=== PATIENT | male | born 1955 | race Caucasian/White ===

== ENCOUNTER 2025-08-24 09:45 | Outpatient (OUT) | payer MEDICARE, OTHER, SELFPAY ==
--- NOTE | 2025-08-24 09:54 | CA_ITS ---
Patient Name: SHILPA DOMINGUEZ MR#: [id number] : 1955 Exam Date: 08/24/2025 Ordering Doctor: PARUL BALTAZAR CNP ECHOCARDIOGRAM REPORT PROCEDURE: CA ECHO DOPPLER COMPLETE INDICATIONS: Longstanding, persistent atrial fibrillation COMPARISON: None. DESCRIPTION: COMPLETE ECHOCARDIOGRAM Real-time transthoracic echocardiography with 2D, M-mode, spectral and color flow Doppler performed. QUALITY: Technical quality was good. LEFT VENTRICLE: Normal chamber size. Mild concentric hypertrophy. Proximal septal hypertrophy (sigmoid septum). Global left ventricular systolic function is normal. Estimated left ventricular ejection fraction is 60%. LV EF: Normal left ventricular ejection fraction, (>55%). DIASTOLIC: Not adequately assessed due to heart rhythm. ATRIAL SEPTUM: LEFT ATRIUM: Severe dilatation. RIGHT ATRIUM: Severe dilatation. RIGHT VENTRICLE: Mild dilatation. Normal right ventricular systolic function. TRICUSPID VALVE: Normal mobility and thickness. No stenosis with mild regurgitation. Mild pulmonary hypertension. RVSP 35 mmHg. MITRAL VALVE: Mildly thickened with normal mobility. No evidence of mitral valve stenosis. Mild mitral annular calcification. Mild mitral regurgitation. AORTIC VALVE: Normal trileaflet appearance. Moderately calcified aortic valve. Moderately diminished mobility. Doppler velocity suggest moderate aortic valve stenosis. DVI 0.37, FENG 1.4 cm2, Vmax 2.5 m/s, peak/mean gradients 25/9mmHg. Mild aortic regurgitation. AORTIC ROOT: The aortic root is normal in size measuring 3.9 cm. The ascending aorta is upper normal in size and measures 3.7 cm. PULMONIC VALVE: Normal thickness and mobility. No stenosis. Trivial regurgitation. PERICARDIUM: No evidence of pericardial effusion. IVC: Collapses with inspiration. Mildly dilated measuring 2.6 cm. PLEURA: CONCLUSION: 1. Mild concentric left ventricular hypertrophy with normal systolic function. Estimated LVEF is 60%. 2. Mildly dilated right ventricle with normal systolic function. 3. Severe biatrial dilatation. 4. Moderate aortic valve stenosis. 5. Mild mitral, aortic and tricuspid regurgitation. 6. Mildly elevated right-sided pressures. Adult Echocardiography Procedure Report Left Ventricle LVEDD (3.7 - 5.6 cm): 5.17 cm LVESD (2.2 - 4.0 cm): 3.73 cm LVIVS thickness (0.6 - 1.2 cm): 1.32 cm LVPW thickness (0.5 - 1.0 cm): 1.23 cm e': 0.11 m/s E - e': 9.65 LVOT Max Gradient: 3.37 mm[Hg] LVOT Area (cm2): 0.92 m/s Peak Velocity (LVOT): 0.92 m/s Mean Velocity (LVOT): 0.60 m/s LVOT Diameter 2.24 cm Left Ventricular Ejection Fraction: 60 % Left Atrium LA Volume Index (2D A2C): 74.02 ml/m2 Left Atrium Systolic Dimension: 5.00 cm Mitral Valve Mitral Valve E-Wave Peak Velocity: 1.04 m/s Right Ventricle RV Internal Diastolic Dimension: 4.38 cm Aorta AO Root Diam: 3.91 cm Ascending Ao Diam: 3.65 cm Aortic Valve AoV Area (Peak Jeremy): 1.51 cm2, 1.56 cm2 AoV Area (VTI): 1.60 cm2, 1.70 cm2 Peak Velocity(Antegrade Flow): 2.32 m/s, 2.49 m/s Peak Gradient(Antegrade Flow): 21.56 mm[Hg], 24.79 mm[Hg] Mean Velocity(Antegrade Flow): 1.65 m/s, 1.25 m/s Mean Gradient(Antegrade Flow): 12.05 mm[Hg], 8.63 mm[Hg] Velocity Time Integral: 51.51 cm, 57.91 cm Tricuspid Valve Peak Velocity (Regurgitant Flow): 2.33 m/s, 2.61 m/s Pulmonic Valve Peak Velocity: 0.86 m/s Peak Gradient: 2.88 mm[Hg], 3.09 mm[Hg] Right Atrium Right Atrium Systolic Pressure: 68.41 ml, 68.41 ml Dictated by: Bossman Fraire M.D. on 08/24/2025 at 19:34 Approved by: Bossman Fraire M.D. on 08/24/2025 at 19:40
== END 2025-08-24 09:46 | disposition home or self-care (01) ==
LOC: CARD 09:46
PROVIDERS: PCP Family Medicine; Visit Provider Nurse Practitioner Family
DX: I48.11 Longstanding persistent atrial fibrillation (principal)
CPT/HCPCS: 93306